=== PATIENT | female | born 1965 | race Caucasian/White ===

== ENCOUNTER 2020-01-06 08:20 | Day surgery (SDC) | payer OTHER ==
[2020-01-03 09:37] VITALS: BMI 28.8
--- OUTSIDE RECORDS SUMMARY | 2020-01-06 08:23 | XMS ---
:1965 Author Organization [facility] Care Team Providers Name Role Phone LUPE WOODS Unavailable Unavailable GEORGOSTATHIS, DIMITR Unavailable Unavailable PENTECOSTALISM, HUMAYUN Unavailable Unavailable LEFKOVITZ, ROQUE Unavailable Unavailable AHMED, TAUSEEF Unavailable Unavailable Re-disclosure Warning The records that you are about to access may contain information from federally- assisted alcohol or drug abuse programs. If such information is present, then the following federally mandated warning applies: This information has been disclosed to you from records protected by federal confidentiality rules (42 CFR part 2). The federal rules prohibit you from making any further disclosure of this information unless further disclosure is expressly permitted by the written consent of the person to whom it pertains or as otherwise permitted by 42 CFR part 2. A general authorization for the release of medical or other information is NOT sufficient for this purpose. The Federal rules restrict any use of the information to criminally investigate or prosecute any alcohol or drug abuse patient.The records that you are about to access may contain highly sensitive health information, the redisclosure of which is protected by Article 27-F of the [facility] Public Health law. If you continue you may haveaccess to information: Regarding HIV / AIDS; Provided by facilities licensed or operated by the [facility] Office of Mental Health; or Provided by the [facility] Office for People With Developmental Disabilities. If such information is present, then the following [facility] mandated warning applies: This information has been disclosed to you from confidential records which are protected by state law. State law prohibits you from making any further disclosure of this information without the specific written consent of the person to whom it pertains, or as otherwise permitted by law. Any unauthorized further disclosure in violation of state law may result in a fine or intermediate sentence or both. A general authorization for the release of medical or other information is NOT sufficient authorization for further disclosure. Encounters Encounter Providers Location Date Indications Data Source(s ) Outpatient Attender: EFRAIN, 10/11/2019 C50.912 [facility] TAUSEEFAdmitter: 10:39:00 AM [facility] [employer] TAUSEEFReferrer: BRETTLUIS LYNNKRISTINE C50.912 Outpatient Attender: CHUCK, 09/10/2019 06:00:00 N95.1 R14.0 [facility] GARYAdmitter: AM [facility] ZVIReferrer: LUPE WOODS N95.1 R14.0 Outpatient Attender: CHUCK, 08/20/2019 06:00:00 N95.1 R14.0 [facility] GARYAdmitter: AM [facility] ZVIReferrer: LUPE WOODS N95.1 R14.0 Outpatient Attender: CHUCK, 06/25/2019 06:00:00 N95.1 N14.0 [facility] GARYAttender: AM [facility] [employer] ZVIAdmitter: Marita HANNONerryeimy: LUPE WOODS N95.1 N14.0 Outpatient Attender: CHUCK, 05/26/2019 N95.1 R14.0 [facility] GARYAdmitter: PENTECOSTALISM, 08:38:00 AM EST R73.9 Health Care HUMAYUNReferrer: Abdias WOODS mendoza ANDRADE N95.1 R14.0 R73.9 Outpatient Attender: FRANSICOSTAT, 02/14/2019 07:21:00 Z1 2.11 [facility] DIMITRAdmitter: AM [facility] [place] GEORGOSTATHIS, Corporatio n DIMITRReferrer: MARTINE DANIELS Z12.11 Outpatient Attender: GARRETGOSTATHIS, 02/14/2019 06:00:00 Z1 2.11 [facility] DIMITRAdmitter: AM EST Health Ca re GEORGOSTATHIS, Corporatio n DIMITRReferrer: GEORGOSTATHIS, DIMITR Z12.11 Insurance Providers Payer name Policy type Policy ID Covered Covered libertarian's Policy P clem / Coverage libertarian ID relationship to [employer] ormation type [employer] [employer] [id number] MALAIKA [id number] HEALTHCARE HMO 1 Problems, Conditions, and Diagnoses Code Display Name Description Problem Type Effective Data Sour ce(s) Dates C50.912 Malignant MALIGNANT 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 OF 10:39:00 AM [facility] unspecified site UNSPECIFIED SITE EDT Ca re 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 06:00:00 AM [facility] EDT Care Corporati on N95.1 Menopausal and MENOPAUSAL AND Diagnosis 06/25/2019 [facility] [place] female FEMALE 06:00:00 AM [facility] climacteric CLIMACTERIC EDT Care Corpora tion states STATES R73.9 Hyperglycemia, HYPERGLYCEMIA, Diagnosis 05/26/2019 [facility] [place] unspecified UNSPECIFIED 08:38:00 AM [facility] EST Care Corporati on R14.0 Abdominal ABDOMINAL Diagnosis 05/26/2019 [place] distension DISTENSION 08:38:00 AM [facility] (gaseous) (GASEOUS) EST Care Corporati on Z85.3 Personal history PERSONAL HISTORY Diagnosis 02/14/2019 [place] malignant OF MALIGNANT 07:21:00 AM [facility] neoplasm of NEOPLASM OF EST Care Corpora tion breast BREAST K64.4 Residual RESIDUAL Diagnosis 02/14/2019 [place] hemorrhoidal skin HEMORRHOIDAL SKIN 07:21:00 AM [facility] tags TAGS EST Care Corporati on K63.89 Other specified OTHER SPECIFIED Diagnosis 02/14/2019 [place] diseases of DISEASES OF 07:21:00 AM [facility] intestine INTESTINE EST Care Corpor[employer] on K62.1 Rectal polyp RECTAL POLYP Diagnosis 02/14/2019 [facility] r 07:21:00 AM [facility] EST Care Corporati on Z12.11 Encounter for ENCOUNTER FOR Diagnosis 02/14/2019 [facility] screening for SCREENING FOR 07:21:00 AM [facility] malignant MALIGNANT EST Care Corporati on neoplasm of colon NEOPLASM OF COLON Results ID Date Data Source [id number] 01/02/2020 09:37:00 AM EDT [facility] Name Value Range Interpretation Description Data Sup porting Code Source(s) Document(s ) SARS [facility] coronavirus 2 RNA This lab was ordered by [facility] and reported by [facility]. Procedure
[2020-01-06] MEDS ORDERED: LIDOCAINE HCL/PF 2% SDV 5ML VIAL ONE (08:55)
[2020-01-06] MEDS ORDERED: PROPOFOL 20 ML ONE ×2 (08:55)
[2020-01-06 10:24] VITALS: BP 114/70; PULSE 74; TEMP 98.4
--- NOTE | 2020-01-11 14:55 | PATH ---
Surgical Pathology Report Patient Name: VANESSA HANLEY [facility]. Rec. #: [id number] /Age/Gender: 1965 (Age: 54) / F Account: [id number] Location: [facility] Taken: 01/06/2020 Received: 01/06/2020 Reported: 01/11/2020 Physicians: Dot Peralta M.D. Specimen(s) Received A: SECOND PORTION DUODENUM B: ANTRUM C: GASTRIC BODY POLYP D: GE JUNCTION Clinical History Abdominal bloating Postoperative diagnosis: Gastritis, gastric polyp Final Diagnosis A. SECOND PORTION OF DUODENUM, BIOPSY: DUODENAL MUCOSA WITH NO SIGNIFICANT PATHOLOGIC CHANGE. NO HISTOLOGIC EVIDENCE OF INTRAEPITHELIAL LYMPHOCYTOSIS. B. ANTRUM, BIOPSY: GASTRIC MUCOSA WITH CHRONIC GASTRITIS. IMMUNOSTAIN FOR H. PYLORI IS NEGATIVE. NEGATIVE FOR INTESTINAL METAPLASIA. C. GASTRIC BODY POLYP, BIOPSY: FUNDIC GLAND POLYP. IMMUNOSTAIN FOR H. PYLORI IS NEGATIVE. D. GE JUNCTION, BIOPSY: GASTROESOPHAGEAL JUNCTIONAL MUCOSA WITH CHRONIC INFLAMMATION AND REFLUX ESOPHAGITIS. NEGATIVE FOR INTESTINAL METAPLASIA. Electronically Signed Klaudia Wade M.D. Gross Description A. Received in formalin, labeled "biopsy second portion of duodenum" is a curran, irregular portion of soft tissue measuring 1.0 cm. in greatest dimension. The specimen is submitted in toto in one cassette. B. Received in formalin, labeled "biopsy gastric antrum" is a curran, irregular portion of soft tissue measuring 0.4 cm. in greatest dimension. The specimen is submitted in toto in one cassette. C. Received in formalin, labeled "biopsy gastric body polyp" is a curran, irregular portion of soft tissue measuring 0.4 cm. in greatest dimension. The specimen is submitted in toto in one cassette. D. Received in formalin, labeled "biopsy GE junction" is a curran, irregular portion of soft tissue measuring 0.4 cm. in greatest dimension. The specimen is submitted in toto in one cassette. 01/09/2020 [facility]01/09/2020
== END 2020-01-06 10:34 | disposition home or self-care (01) ==
LOC: FASU-ENDO 08:20
PROVIDERS: ATTEND Internal Medicine Gastroenterology
PROC: 0DB68ZX Excision of Stomach, Via Natural or Artificial Opening Endoscopic, Diagnostic (ICD-10-PCS; 2020-01-06)
PROC: 0DB48ZX Excision of Esophagogastric Junction, Via Natural or Artificial Opening Endoscopic, Diagnostic (ICD-10-PCS; 2020-01-06)
PROC: 0DB98ZX Excision of Duodenum, Via Natural or Artificial Opening Endoscopic, Diagnostic (ICD-10-PCS; principal; 2020-01-06 09:38)
DX: K31.7 Polyp of stomach and duodenum (principal); K29.50 Unspecified chronic gastritis without bleeding; K21.00 Gastro-esophageal reflux disease with esophagitis, without bleeding; R10.13 Epigastric pain
CPT/HCPCS: 88305-TC; 88342-TC